=== PATIENT | male | born 2000 | race Caucasian/White ===

== ENCOUNTER 2024-11-15 06:25 | Day surgery (SDC) | payer OTHER, SELFPAY | END 2024-11-15 10:11 | disposition home or self-care (01) | LOC: GI 06:25 | PROVIDERS: ATTENDING PHYSICIAN Internal Medicine Gastroenterology | DX: K64.8 Other hemorrhoids (principal); K64.4 Residual hemorrhoidal skin tags; K50.80 Crohn's disease of both small and large intestine without complications; K52.9 Noninfective gastroenteritis and colitis, unspecified; K62.89 Other specified diseases of anus and rectum | CPT/HCPCS: 45380; 88305 ==